=== PATIENT | female | born 1970 | race Caucasian/White ===

== ENCOUNTER 2017-10-18 14:35 | Outpatient (CLI) | payer OTHER ==
--- NOTE | 2017-10-19 12:26 | EKG ---
Test Reason : Blood Pressure : / mmHG Vent. Rate : 071 BPM Atrial Rate : 071 BPM P-R Int : 130 ms QRS Dur : 080 ms QT Int : 374 ms P-R-T Axes : 063 054 043 degrees QTc Int : 406 ms Normal sinus rhythm Normal ECG Confirmed by FLORENCE HIRSCH, DR. Brewer ([id number]) on 10/19/2017 12:25:28 PM Referred By: RONALDO Confirmed By:DR. Daniella HENRIQUEZ MD
== END 2017-10-18 14:36 | disposition home or self-care (01) ==
LOC: LABBT 14:35
PROVIDERS: ATTEND Neurological Surgery
DX: Z01.818 Encounter for other preprocedural examination (principal); M54.16 Radiculopathy, lumbar region
CPT/HCPCS: 93005; 93010

== ENCOUNTER 2017-10-22 07:02 | Day surgery (SDC) | payer OTHER ==
[2017-10-18 15:13] VITALS: BMI 23.8
--- NOTE | 2017-10-21 22:55 | HP ---
HISTORY OF PRESENT ILLNESS: Ms. Irvin is referred to us by Dr. Sneed's office for evaluatio n of left-sided L5 and S1 radiculopathy with an MRI revealing left-sided disk herniation impacting eneida th the S1 and L5 nerve root at this level. She has treated this conservatively over the last several months, but continues to be in significant discomfort and hopes to move forward with surgery if poss ible. PAST MEDICAL HISTORY: No major illnesses. PAST SURGICAL HISTORY: Cholecystectomy. CURRENT MEDICATIONS: Flexeril. ALLERGIES: No known drug allergies. PHYSICAL EXAMINATION GENERAL: The patient is alert and oriented x3. EXTREMITIES: Gait is antalgic. Lower extremity motor exam is normal. Left lower extremity straight leg raise is positive. Right lower extremity is negative. ASSESSMENT: Lumbar disk herniation with radiculopathy. PLAN: Dr. Wylie met with the patient, reviewed imaging and advocated for a left-sided L5 diskectomy. He explained to the patient the risks, benefits, and alternatives to the procedure. The patient ex pressed understanding and would like to move forward with surgery as discussed. I do believe the pat iesangeeta is mentally competent and capable of making medical decisions for herself and we will move forwa rd with surgery as planned.
[2017-10-22] MEDS ORDERED: CEFAZOLIN/Water 2 GM/20 ML SYRINGE ONE ×2 (07:16→12:54)
[2017-10-22] MEDS ORDERED: Bupivacaine HCl 0.5%/Epinephrine 1:200,000/PF 30 ml Vial ONE (09:40)
[2017-10-22] MEDS ORDERED: Thrombin 5000 UNITS/5 ML VIAL ONE (09:40)
[2017-10-22] MEDS ORDERED: Midazolam HCl 2 mg/2 ml Vial ONE (10:05)
[2017-10-22] MEDS ORDERED: Fentanyl 100 MCG/2 ML VIAL ONE (10:06)
[2017-10-22] MEDS ORDERED: HYDROcodone/Acetaminophen 5/325 mg Tablet ONE (12:34)
[2017-10-22] MEDS ORDERED: Ondansetron HCl/PF 4 MG/2 ML Vial ONE (15:38)
[2017-10-22] MEDS ORDERED: Glycopyrrolate 0.2 MG/ML 5 ML SYRINGE ONE (15:38)
[2017-10-22] MEDS ORDERED: Lidocaine 1% PF 5 ML VIAL ONE (15:38)
[2017-10-22] MEDS ORDERED: Dexamethasone 20 MG/5 ML VIAL ONE (15:38)
[2017-10-22] MEDS ORDERED: PROPOFOL 200 MG/20 ML VIAL ONE (15:38)
[2017-10-22] MEDS ORDERED: Ketorolac Tromethamine 30 MG/ML VIAL ONE (15:38)
--- NOTE | 2017-10-25 13:33 | OP ---
DATE OF PROCEDURE: 10/22/2017 SURGEON: Raymon Wylie M.D. [employer] DES[employer] ENGINEER: Hans Blake PA-C. INDICATION: Pain. DIAGNOSES: Lumbar radiculopathy. PROCEDURE PERFORMED: Left L5 discectomy. ANESTHESIA: General. TECHNIQUE: The patient was brought into the operating room and placed under general anesthesia. She was flipped from a supine to a prone position on the operating room table. A linear incision was pl anned over the L5-S1 segment. After prepping and draping and after an appropriate operative pause, t he incision was created. The soft tissues were swept away from midline. A self-retaining retractor was placed in the wound for optimal exposure. After confirming the appropriate level with C-arm fluo roscopy, a high-speed cutting drill bit as well as the 2, 3 and 4 mm Kerrisons were used to perform a laminectomy along the inferior aspect of L5 and the superior aspect of S1. The laminectomy was exte nded to include the medial aspect of the facet joint on the left. The descending S1 nerve root was i dentified and mobilized medially. A protuberant disk mask was identified and incised using an 11 cori de knife. A diskectomy was performed until the descending S1 nerve root was well-decompressed. The wound was irrigated. Hemostasis was maintained throughout. The wound was then closed in anatomic la yers and a pressure dressing was applied. There were no known procedural complications.
== END 2017-10-22 13:31 | disposition home or self-care (01) ==
LOC: SDC 07:02
PROVIDERS: ATTEND Neurological Surgery
PROC: 01NB0ZZ Release Lumbar Nerve, Open Approach (ICD-10-PCS; principal; 2017-10-22)
PROC: 0SB20ZZ Excision of Lumbar Vertebral Disc, Open Approach (ICD-10-PCS; principal; 2017-10-22)
DX: M51.16 Intervertebral disc disorders with radiculopathy, lumbar region (principal); Z79.899 Other long term (current) drug therapy
CPT/HCPCS: 76001; 96365; J0670; J1100; J1885; J2001; J2250; J2405; J2704; J3010

== ENCOUNTER 2017-12-27 15:08 | Outpatient (CLI) | payer OTHER ==
--- NOTE | 2018-01-03 10:32 | MMO ---
BILATERAL SCREENING MAMMOGRAMS: Date: 12/27/17 Comparison made to prior exams from 2016 and 2017. This patient's mammogram was interpreted with the assistance of computer-aided detection. FINDINGS: Heterogeneously dense glandular pattern is noted. There is a 1.0 cm nodular density in the posterior outer right breast seen on CC view which is asymmetric and appears new from prior exam. Recommend gena gnostic right mammogram. IMPRESSION: BIRADS 0: Incomplete: Need Additional Imaging Evaluation and/or Prior Mammograms for Comparison Further imaging of right breast required. The facility will notify patient of need for additional imaging services. POS: TED
== END 2017-12-27 15:09 | disposition home or self-care (01) ==
LOC: SCSMAMMO 15:08
PROVIDERS: ATTEND Student in an Organized Health Care Education/Training Program
DX: Z12.31 Encounter for screening mammogram for malignant neoplasm of breast (principal)
CPT/HCPCS: 77067

== ENCOUNTER 2018-01-31 09:02 | Outpatient (CLI) | payer OTHER ==
--- NOTE | 2018-01-31 12:01 | ULT ---
RIGHT BREAST ULTRASOUND: Comparison: Mammogram, 01-31-18 History: 47-year-old female with focal asymmetry in the central aspect of the right breast is seen on the CC v iew on the screening mammogram only. Technique: Multiplanar grayscale and color doppler images were obtained in a right breast ultrasound. FINDINGS: An incidentally seen cyst is seen at the 8 o'clock position of the right breast. This measures approx imately 3 mm in size and likely does not correspond to the mammographic abnormality. No solid mass is seen. No suspicious shadowing is present in the lower outer aspect of the right breast. IMPRESSION: BIRADS category 2 - benign finding. Annual screening mammography is recommended. POS: TED
== END 2018-01-31 09:03 | disposition home or self-care (01) ==
LOC: BICMAMMO 09:02
PROVIDERS: ATTEND Student in an Organized Health Care Education/Training Program
DX: R92.2 Inconclusive mammogram (principal); N64.89 Other specified disorders of breast
CPT/HCPCS: G0279

== ENCOUNTER 2019-10-30 07:16 | Outpatient (CLI) | payer OTHER ==
[2019-10-31 14:14] LABS: SARS-CoV-2 MS2 Positive; SARS-CoV-2 N Gene Negative; SARS-CoV-2 S Gene Negative; SARS-CoV-2 by NAA Not Detected (NotDetected); SARS-CoV-2 orf1ab Negative
== END 2019-10-30 07:17 | disposition home or self-care (01) ==
LOC: LABBT 07:16
PROVIDERS: ATTEND Neurological Surgery
DX: Z01.812 Encounter for preprocedural laboratory examination (principal); Z11.59 Encounter for screening for other viral diseases; M54.16 Radiculopathy, lumbar region
CPT/HCPCS: 87635; U0003

== ENCOUNTER 2020-01-12 09:16 | Outpatient (CLI) | payer OTHER ==
--- NOTE | 2020-01-12 11:29 | MRI ---
MRI LUMBAR SPINE WITH AND WITHOUT CONTRAST: DATE: 01/12/2020 HISTORY: 49-year-old female with lumbar radiculopathy M 54.16 COMPARISON: None TECHNIQUE: Multiple sequences obtained in axial and sagittal planes, pre and post IV injection of gadolinium-bas ed contrast agent. FINDINGS: For the purposes of this report, it will be assumed that there are 5 lumbar-type vertebrae. Vertebral body heights are maintained. Conus medullaris terminates at L1-2. There is no epidural abscess. No abnormal intrathecal enhancemen t. Cauda equina is arranged in a symmetrical, normal distribution throughout the thecal sac. There is high-grade disc space narrowing at L5-S1. The rest of the disc spaces are maintained. Alignment is normal. T12-L1:Normal L1-2:Normal L2-3:Disc bulge. At least mild bilateral facet DJD. Mild central spinal canal stenosis. No right neur al foraminal stenosis. Minimal left neural foraminal stenosis. L3-4:Mild bilateral facet DJD. Mild disc bulge. Mild central spinal canal stenosis. Mild ligamentum f lavum thickening. No high-grade neural foraminal stenosis. L4-5:Prominent diffuse disc bulge with what may be a superimposed broad-based central and bilateral p aracentral disc protrusion, with annular fissure. This significantly indents the thecal sac. Mild ligamentum flavum thickening from bilateral facet hypertrophy indents the posterior aspect of spinal canal and thecal sac. Trefoil configuration distortion of spinal canal and thecal sac, with moderate central spinal canal stenosis and lateral recess stenosis bilaterally. Enhancing granulation tissue of left hemilaminotomy. Moderate left neural foraminal stenosis. Mild to moderate right neural foraminal stenosis. L5-S1:There is high-grade disc space narrowing, with endplate marrow edema with enhancement, probably representing Modic type I changes. Nonspecific slightly heterogeneous signal in the disc space. No definite enhancement within the disc space. Diffuse disc bulge. Mild to moderate right and moderate l eft neural foraminal stenosis. The central and bilateral paracentral portions of the disc bulge indents the thecal sac and contact the bilateral S1 nerve roots. Despite this, no significant central spinal canal stenosis. IMPRESSION: 1) status post left hemilaminotomy/laminectomy at L4-5, with enhancing granulation tissue or scar tis demarcus in that location (depending on how long ago the surgery occurred). 2) moderate central spinal canal stenosis with bilateral lateral recess stenosis at L4-5. 3) high-grade degenerative disc disease at L5-S1 with bone marrow edema which probably represents Mod ic type I changes.
== END 2020-01-12 09:17 | disposition home or self-care (01) ==
LOC: SCSMRI 09:16
PROVIDERS: ATTEND Neurological Surgery
DX: M51.17 Intervertebral disc disorders with radiculopathy, lumbosacral region (principal); M48.061 Spinal stenosis, lumbar region without neurogenic claudication; R60.0 Localized edema; Z98.890 Other specified postprocedural states
CPT/HCPCS: 72158

== ENCOUNTER 2020-05-27 05:40 | Day surgery (SDC) | payer OTHER ==
[2020-05-24 11:51] VITALS: BMI 23.8
--- NOTE | 2020-05-26 15:57 | HP ---
Ms. Rainer Irvin is known to us for two prior diskectomies at the level of the lumbar spine, who returns now with worsening and rather progressive symptoms of a right-sided S1 radiculopathy, that did not respond much to epidural steroid injections. Repeat MRI was ordered at [facility] that reveals recurrent focal disk extrusion in the lateral recess at L5 that would account for this. She hopes to move forward with surgery if possible. PAST MEDICAL HISTORY: No major medical problems. PAST SURGICAL HISTORY: Lumbar diskectomy x2. CURRENT MEDICATIONS: Cyclobenzaprine. ALLERGIES: NO KNOWN DRUG ALLERGIES. PHYSICAL EXAMINATION: Deferred for telehealth visit. ASSESSMENT: Lumbar radiculopathy and disk herniation. PLAN: Dr. Wylie met with the patient, reviewed imaging and advocated for right L5 diskectomy. He explained the patient the risks, benefits, and alternatives to the procedure. The patient expressed understanding and elected to move forward with surgery as discussed. I do believe the patient is mentally competent and capable of making medical decisions for herself. We will move forward with surgery as planned. Job ID: [id number]
[2020-05-27] MEDS ORDERED: Thrombin 5000 UNITS/5 ML VIAL ONE (06:11)
[2020-05-27] MEDS ORDERED: Bupivacaine PF 0.5% 30 ML VIAL ONE (06:11)
[2020-05-27] MEDS ORDERED: EPINEPHrine 1 MG/ML AMP ONE (06:11)
[2020-05-27] MEDS ORDERED: Fentanyl 100 MCG/2 ML VIAL ONE ×2 (06:41→08:34)
[2020-05-27] MEDS ORDERED: Morphine 4 MG/ML VIAL ONE (06:41)
[2020-05-27] MEDS ORDERED: Midazolam HCl 2 mg/2 ml Vial ONE (06:41)
--- NOTE | 2020-05-27 08:29 | OP ---
DATE OF PROCEDURE: 05/27/2020 CERTIFIED NURSES AIDE: Hans Blake PA-C INDICATION: Pain. DIAGNOSIS: Lumbar radiculopathy. PROCEDURE PERFORMED: Right L5-S1 decompression diskectomy. ANESTHESIA: General. DESCRIPTION OF PROCEDURE: The patient was brought into the operating room and placed under general anesthesia. She was flipped from the supine to prone position on the operating room table. A linear incision was planned over the L5-S1 segment. After prepping and draping and after an appropriate preoperative pause, the incision was created. The soft tissues were swept right of midline and a self-retaining retractor was placed in the wound for optimal exposure. After confirming the appropriate level with C-arm fluoroscopy, 2, 3, and 4 mm Kerrisons were used to perform a laminectomy along the inferior aspect of L5 and the superior aspect of S1. The descending S1 nerve root was identified and mobilized medially with a nerve root retractor. An annulotomy was performed in the disk space, where disk material was removed until the lateral recesses and therefore the descending S1 nerve root was well decompressed. The wound was then irrigated. Hemostasis was maintained throughout. The wound was then closed in anatomic layers, and a pressure dressing was applied. There were no known procedural complications. Job ID: [id number]
[2020-05-27] MEDS ORDERED: Promethazine HCl 25 MG/ML VIAL ONE (09:09)
[2020-05-27] MEDS ORDERED: Morphine 2 MG/ML VIAL ONE (09:09)
[2020-05-27] MEDS ORDERED: HYDROcodone/Acetaminophen 5/325 mg Tablet ONE ×2 (09:45→10:39)
[2020-05-27] MEDS ORDERED: Ondansetron PF 4 MG/2 ML Vial ONE (10:27)
[2020-05-27] MEDS ORDERED: Ketorolac Tromethamine 30 MG/ML VIAL ONE (10:27)
[2020-05-27] MEDS ORDERED: Rocuronium Bromide 10 MG/ML (10ML VIAL) ONE (10:27)
[2020-05-27] MEDS ORDERED: diphenhydrAMINE 50 MG/ML VIAL ONE (10:27)
[2020-05-27] MEDS ORDERED: Glycopyrrolate 0.2 MG/ML 5 ML SYRINGE ONE (10:27)
[2020-05-27] MEDS ORDERED: PROPOFOL 200 MG/20 ML VIAL ONE (10:27)
[2020-05-27] MEDS ORDERED: Dexamethasone 20 MG/5 ML VIAL ONE (10:27)
== END 2020-05-27 11:30 | disposition home or self-care (01) ==
LOC: SDC 05:40
PROVIDERS: ATTEND Neurological Surgery
PROC: 01NB0ZZ Release Lumbar Nerve, Open Approach (ICD-10-PCS; principal; 2020-05-27)
PROC: 0ST20ZZ Resection of Lumbar Vertebral Disc, Open Approach (ICD-10-PCS; principal; 2020-05-27)
DX: M51.16 Intervertebral disc disorders with radiculopathy, lumbar region (principal)
CPT/HCPCS: 76000; 93005; 93010; J0171; J0690; J1100; J1200; J1885; J2250; J2270; J2405; J2550; J2704; J3010; S0020